=== PATIENT | male | born 1960 | race Two or more races ===

== ENCOUNTER → 2017-07-04 | Outpatient (CLI) | payer OTHER ==
[~2017-07-04] MED LIST: levothyroxine PO
[2017-07-04 10:47] LABS: ASPARTATE AMINO TRANSFERASE 23 U/L (15-37); BLOOD UREA NITROGEN 19 mg/dL (7-18)
[2017-07-04 10:49] LABS: HEMATOCRIT 52.2 % (39.2-51.8); HEMOGLOBIN 17.6 g/dL (13.7-18.0); WHITE BLOOD COUNT 4.8 x10^3/uL (3.4-10)
== END | disposition home or self-care (01) ==
LOC: STAR 09:32
PROVIDERS: ATTEND Neurological Surgery
DX: Z01.818 Encounter for other preprocedural examination (principal); R91.8 Other nonspecific abnormal finding of lung field; M48.02 Spinal stenosis, cervical region; R79.1 Abnormal coagulation profile
CPT/HCPCS: 36415; 71020; 80053; 85025; 85610; 85730; 93005

== ENCOUNTER 2017-07-16 05:31 | Inpatient (IN) | payer OTHER ==
[~2017-07-16] VITALS: Ht 170.2 cm; Wt 82.9 kg
[2017-07-16] MEDS ORDERED: LACTATED RINGERS 1,000 ML IV SCH (06:04)
[2017-07-16 06:08] VITALS: BP 151/101
[2017-07-16] MEDS ORDERED: BUPIVACAINE/PF 0.5% ONE (06:53)
[2017-07-16] MEDS ORDERED: BACITRACIN 50,000 UNIT ONE (06:54)
[2017-07-16] MEDS ORDERED: MEPERIDINE/PF 25MG/0.5ML IVPush PRN (07:30)
[2017-07-16] MEDS ORDERED: FENTANYL PF 100 MCG/2ML IV PRN (07:30)
[2017-07-16] MEDS ORDERED: ACETAMINOPHEN 325 MG TABLET PO PRN (07:30)
[2017-07-16] MEDS ORDERED: OXYcodone 5 MG/5 ML ORAL.SOL UDC PO PRN (07:30)
[2017-07-16] MEDS ORDERED: LABETALOL 5MG/ML, 20ML IV PRN (07:30)
[2017-07-16] MEDS ORDERED: PROMETHAZINE 25 MG/ML, 1ML IV PRN (07:30)
[2017-07-16] MEDS ORDERED: hydrALAzine 20 MG/ML, 1ML IV PRN (07:30)
[2017-07-16] MEDS ORDERED: ONDANSETRON 2MG/ML, 2ML IVPush PRN (07:30)
[2017-07-16] MEDS ORDERED: DEXAMETHASONE 4 MG/ML, 1ML ONE (10:34)
[2017-07-16] MEDS ORDERED: CEFAZOLIN 1,000 MG ONE (10:34)
[2017-07-16] MEDS ORDERED: PROPOFOL 10 MG/ML, 20ML ONE (10:34)
[2017-07-16] MEDS ORDERED: PROPOFOL 10 MG/ML, 50ML ONE (10:34)
[2017-07-16] MEDS ORDERED: SUCCINYLCHOLINE 20 MG/ML, 10ML ONE (10:34)
[2017-07-16] MEDS ORDERED: ROCURONIUM 10MG/ML,5ML ONE (10:34)
[2017-07-16] MEDS: HYDROmorphone 1 MG/ML, 1ML IV PRN ×6 (11:14→12:13)
[2017-07-16] MEDS ORDERED: HYDROmorphone 2 MG/ML, 1ML ONE (11:14)
[2017-07-16] MEDS ORDERED: HYDROmorphone 1 MG/ML, 1ML ONE (11:56)
[2017-07-16] MEDS ORDERED: HYDROmorphone 2MG TABLET PO PRN (13:00)
[2017-07-16] MEDS ORDERED: HYDROmorphone 2 MG/ML, 1ML IM PRN (13:00)
[2017-07-16] MEDS ORDERED: PROMETHAZINE 25 MG/ML, 1ML IM PRN (13:30)
[2017-07-16] MEDS ORDERED: DIPHENHYDRAMINE 50 MG CAPSULE PO PRN (13:30)
[2017-07-16] MEDS ORDERED: DIAZEPAM 5 MG TABLET PO PRN (13:30)
[2017-07-16] MEDS ORDERED: OXYcodone/APAP 5/325MG TABLET PO PRN (13:30)
[2017-07-16] MEDS ORDERED: HYDROcodone/APAP 5/325 TABLET PO PRN (13:30)
[2017-07-16] MEDS ORDERED: BISACODYL 10 MG SUPP PR PRN (13:30)
[2017-07-16] MEDS ORDERED: MAGNESIUM HYDROXIDE 8%, 30ML UDC PO PRN (13:30)
[2017-07-16] MEDS ORDERED: DIPHENHYDRAMINE 50 MG/ML, 1ML IM PRN (13:30)
[2017-07-16] MEDS ORDERED: METHOCARBAMOL 750 MG TABLET PO PRN (13:30)
[2017-07-16] MEDS ORDERED: DIPHENHYDRAMINE 50 MG/ML, 1ML IVPush PRN (13:30)
[2017-07-16] MEDS ORDERED: DIAZEPAM 5 MG/ML, 2ML IV PRN (13:30)
[2017-07-16] MEDS ORDERED: ONDANSETRON 2MG/ML, 2ML IV PRN (13:30)
[2017-07-16 14:10] VITALS: BP 117/76
[2017-07-16] MEDS: NS + 20MEQ KCL 1,000 ML IV SCH (15:19)
[2017-07-16] MEDS: CEFAZOLIN PMX 1GM/50ML 50 ML IVPB SCH (16:26)
[2017-07-16 20:05] VITALS: BP 128/79
[2017-07-17 00:48] VITALS: BP 120/73
[2017-07-17 03:24] VITALS: BP 117/75
[2017-07-17] MEDS: CEFAZOLIN PMX 1GM/50ML 50 ML IVPB SCH (03:55)
[2017-07-17] MEDS: NS + 20MEQ KCL 1,000 ML IV SCH (06:10)
[2017-07-17 07:20] VITALS: BP 117/77
[2017-07-17] MEDS ORDERED: DIAZEPAM 5 MG TABLET PO PRN (07:30)
[2017-07-17] MEDS ORDERED: DIAZEPAM 5 MG/ML, 2ML IV PRN (07:30)
[2017-07-17] MEDS ORDERED: METH750T87 PO (08:27)
[2017-07-17] MEDS ORDERED: OXYC-302 PO (08:27)
[2017-07-17] MEDS ORDERED: SENNA/DOCUSATE TABLET PO SCH (09:00)
[2017-07-17] MEDS ORDERED: FLU VACC QS2017-18 (36MOS+) UP/PF 0.5 ML IM-VACC ONE (11:00)
== END 2017-07-17 13:20 | disposition home or self-care (01) | DRG 473 ==
LOC: ORIP 05:31 → 4NOR 12:26 → DCLOUNGE 07-17 12:50
PROVIDERS: ADMIT Neurological Surgery; ATTEND Neurological Surgery
PROC: 0RB30ZZ Excision of Cervical Vertebral Disc, Open Approach (ICD-10-PCS; 2017-07-16)
PROC: 4A11X4G Monitoring of Peripheral Nervous Electrical Activity, Intraoperative, External Approach (ICD-10-PCS; 2017-07-16)
PROC: 0RG20A0 Fusion of 2 or more Cervical Vertebral Joints with Interbody Fusion Device, Anterior Approach, Anterior Column, Open Approach (ICD-10-PCS; principal; 2017-07-16 07:30)
DX: M47.22 Other spondylosis with radiculopathy, cervical region (principal); M48.02 Spinal stenosis, cervical region; Z23 Encounter for immunization
CPT/HCPCS: 36415; 72040; 86850; 86900; 90686; 95938; 95941; C1713; C1776; J0690; J1100; J1170; J2250; J2270; J2405; J2704; J3010; J3480; J3490; J0330; J1200; J7120